=== PATIENT | male | born 1970 | race Two or more races ===

== ENCOUNTER 2019-10-05 11:52 | Emergency (ER) | payer SELFPAY ==
[~2019-10-05] VITALS: Ht 172.7 cm; Wt 81.6 kg
--- NOTE | 2019-10-05 11:59 | NUR ---
BIB [facility] [place],"INTOXICATED", UNABLE TO GET UP,BOTTLE OF VODKA WAS IN HIS HAND PER REPORT, TO ER BED 12, HOOKED TO MONITOR, CHANGED TO HOSP GOWN, WARM BLANKET PROVIDED, DR FLORENCE AT BEDSIDE
--- NOTE | 2019-10-05 12:23 | NUR ---
not able to provide urine sample, made aware
[2019-10-05 12:47] LABS: ALANINE AMINOTRANSFERASE 30 U/L (12-78); ALBUMIN 3.9 g/dL (3.4-5.0); ALKALINE PHOSPHATASE 96 U/L (46-116); ASPARTATE AMINOTRANSFERASE 36 U/L (15-37); BILIRUBIN,DIRECT 0.1 mg/dL (0.0-0.2); BILIRUBIN,TOTAL 0.2 mg/dL (0.2-1.0); CALCIUM, SERUM 8.2 mg/dL (8.5-10.1); CARBON DIOXIDE 28 mmol/L (21-32); CHLORIDE 108 mmol/L (98-107); CREATININE 0.8 mg/dL (0.6-1.3); GLUCOSE 91 mg/dL (74-106); POTASSIUM 3.7 mmol/L (3.5-5.1); SODIUM SERUM 146 mmol/L (136-145); TOTAL PROTEIN, SERUM 7.5 g/dL (6.4-8.2); UREA NITROGEN, BLOOD 13 mg/dL (7-18)
[2019-10-05 12:49] LABS: ACETAMINOPHEN < 2 ug/ml (10-30); ALCOHOL, BLOOD 414 mg/dL (0-0)
[2019-10-05 12:52] LABS: BASOPHILS % (AUTO) 0.7 % (0.0-2.0); EOSINOPHILS % (AUTO) 0.1 % (0.0-6.0); HEMATOCRIT 37 % (39-51); HEMOGLOBIN 11.5 g/dL (13.5-17.5); LYMPHOCYTES # (AUTO) 1.7 /CMM (0.8-4.8); LYMPHOCYTES % (AUTO) 34.9 % (20.0-44.0); MEAN CORPUSCULAR HGB CONC 32 g/dl (31.0-36.0); MEAN CORPUSCULAR VOLUME 80 fL (80-96); MONOCYTES # (AUTO) 0.3 /CMM (0.1-1.30); MONOCYTES % (AUTO) 6.6 % (2.0-12.0); NEUTROPHILS # (AUTO) 2.9 /CMM (1.8-8.9); NEUTROPHILS % (AUTO) 57.7 % (43.0-81.0); PLATELET COUNT (AUTO) 325 /CMM (150-450); RED BLOOD CELL COUNT(AUTO) 4.57 MIL/uL (4.5-6.0)
--- NOTE | 2019-10-05 13:58 | NUR ---
patient in bed asleep, arousable by tactile stimuli, hooked to monitor, will continue to monitor accordingly.
--- NOTE | 2019-10-05 15:34 | NUR ---
PATIENT ABLE TO AMBULATE W STEADY GAIT, MADE AWARE
--- NOTE | 2019-10-05 15:58 | NUR ---
Patient given written and verbal discharge instructions. Patient verbalizes understanding of instructions. Patient is ambulatory with steady gait. Refuses offer of nursing home placement. Patient given list of available shelters in surrounding area. In proper clothing upon discharge, all belongings w patient, name band removed.
[2019-10-05 16:00] VITALS: BP 132/90
== END 2019-10-05 16:00 | disposition home or self-care (01) ==
LOC: ER 11:54
DX: F10.129 Alcohol abuse with intoxication, unspecified (principal); R40.4 Transient alteration of awareness; Y90.8 Blood alcohol level of 240 mg/100 ml or more
CPT/HCPCS: 36415; 70450; 80048; 80076; 80307; 80329; 85025; 99284; G0480